=== PATIENT | female | born 1945 | race Caucasian/White ===

== ENCOUNTER 2022-11-04 10:22 | Outpatient (CLI) | payer MEDICARE, OTHER | END 2022-11-04 10:23 | disposition home or self-care (01) | LOC: BICRAD 10:22 | PROVIDERS: ATTEND Family Medicine | DX: M46.1 Sacroiliitis, not elsewhere classified (principal); M47.818 Spondylosis without myelopathy or radiculopathy, sacral and sacrococcygeal region | CPT/HCPCS: 72170 ==

== ENCOUNTER 2024-07-06 07:41 | Outpatient (CLI) | payer MEDICARE, OTHER | END 2024-07-06 07:42 | disposition home or self-care (01) | LOC: NM 07:41 | PROVIDERS: ATTEND Psychiatry & Neurology Neurology | DX: R25.1 Tremor, unspecified (principal) | CPT/HCPCS: 78803; A9584 ×2 ==